=== PATIENT | male | born 1995 | race African-American/Black ===

== ENCOUNTER 2019-10-14 19:02 | Emergency (ER) | payer OTHER ==
[~2019-10-14] VITALS: Ht 167.6 cm; Wt 87.8 kg
[2019-10-14 19:03] VITALS: BP 122/67
[2019-10-14] MEDS ORDERED: TETRACAINE 0.5% OPHTH SOLN 4ML OD ONE (21:15)
[2019-10-14] MEDS ORDERED: FLUORESCEIN OPHTH 1 MG STRIP OD ONE (21:15)
[2019-10-14] MEDS ORDERED: POLYTRIM OPTH DROPS 10ML OU STA (21:23)
[2019-10-14] MEDS ORDERED: POLYSOL OP (22:05)
== END 2019-10-14 22:20 | disposition home or self-care (01) ==
LOC: M ED 19:02
DX: H10.9 Unspecified conjunctivitis (principal)

== ENCOUNTER 2020-04-17 13:29 | Emergency (ER) | payer OTHER ==
[~2020-04-17] VITALS: Ht 167.6 cm; Wt 89.6 kg
[~2020-04-17 13:29] MED LIST: POLYSOL OP
--- NOTE | 2020-04-17 15:11 | REP ---
INDICATION: great toe pain and swelling COMPARISON: None. TECHNIQUE: AP, lateral, bilateral oblique views . FINDINGS: The osseous structures and joint spaces are intact and normal. There is no evidence for acute fracture or dislocation. Surrounding soft tissues are unremarkable. No subcutaneous emphysema or radiodense foreign body. No significant degenerative changes appreciated. IMPRESSION: Relatively unremarkable right foot radiographs. <Electronically signed by Dixon Oden > 04/17/20 [id number]
[2020-04-17 15:25] VITALS: BP 123/78
[2020-04-17 15:34] LABS: BASO # 0.1 10^3/uL (0.0-0.2); BASO % 1.4 % (0.0-1.0); EOS % 0.4 % (0.0-3.0); HEMATOCRIT 47.2 % (42.0-52.0); HEMOGLOBIN 15.6 g/dl (13.5-17.5); LYMPH # 2.5 10^3/uL (1.5-5.0); LYMPH % 44.5 % (24.0-44.0); MEAN CORPUSCULAR HEMOGLOBIN 29.1 pg (27.0-33.0); MEAN CORPUSCULAR HGB CONC 33.1 g/dl (32.0-36.5); MEAN CORPUSCULAR VOLUME 88.1 fl (80.0-96.0); MONO # 0.5 10^3/uL (0.0-0.8); MONO % 8.6 % (0.0-5.0); NEUTROPHILS # 2.6 10^3/uL (1.5-8.5); NEUTROPHILS % 45.1 % (36.0-66.0); PLATELET COUNT, AUTOMATED 292 10^3/uL (150-450); RED BLOOD COUNT 5.36 10^6/uL (4.30-6.10); WHITE BLOOD COUNT 5.7 10^3/uL (4.0-10.0)
[2020-04-17 15:55] LABS: ERYTHROCYTE SEDIMENTATION RATE 2 mm/hr (0-15)
[2020-04-17 15:59] LABS: BLOOD UREA NITROGEN 15 MG/DL (7-18); CALCIUM LEVEL 9.5 MG/DL (8.5-10.1); CARBON DIOXIDE LEVEL 28 MEQ/L (21-32); CHLORIDE LEVEL 107 MEQ/L (98-107); CREATININE FOR GFR 1.19 MG/DL (0.70-1.30); GLOMERULAR FILTRATION RATE > 60.0 (>60); GLUCOSE, FASTING 90 MG/DL (70-100); POTASSIUM SERUM 4.4 MEQ/L (3.5-5.1); SODIUM LEVEL 138 MEQ/L (136-145); URIC ACID 5.3 MG/DL (3.5-7.2)
[2020-04-17] MEDS ORDERED: KETOROLAC 60MG 2ML VIAL IM ONE (16:15)
== END 2020-04-17 16:35 | disposition home or self-care (01) ==
LOC: M ED 13:29
DX: M79.671 Pain in right foot (principal)
CPT/HCPCS: 36415; 73630; 80048; 84550; 85025; 85652; 86140; 96372; 99284; J1885